=== PATIENT | male | born 1990 | race Caucasian/White ===

== ENCOUNTER 2020-09-27 19:51 | Emergency (ER) | payer OTHER ==
[~2020-09-27] VITALS: Ht 180.3 cm; Wt 95.6 kg
[2020-09-27 19:51] VITALS: BP 130/68
--- NOTE | 2020-09-27 20:33 | REPVR ---
PROCEDURE INFORMATION: Exam: XR Ribs with PA Chest Exam date and time: 09/27/2020 8:20 PM Age: 30 years old Clinical indication: Injury or trauma; Fall; Rib area, bilateral; Blunt trauma TECHNIQUE: Imaging protocol: XR bilateral ribs with PA chest. Views: 4 views COMPARISON: No relevant prior studies available. FINDINGS: Lungs: Lungs are free of infiltrates or masses. Pleural spaces: No pleural effusion. Heart/Mediastinum: Heart and mediastinal contours are normal. Bones/joints: No acute displaced rib fracture. No destructive or blastic rib lesion. No pneumothorax or other ancillary evidence of rib trauma. IMPRESSION: Negative bilateral rib series with single view chest. No acute fracture or acute intrathoracic process. Electronically signed by: Jose Driscoll On 09/27/2020 20:32:29 PM
[2020-09-27] MEDS ORDERED: KETOROLAC TROMETHAMINE 10 MG TAB PO ONE (21:10)
[2020-09-27] MEDS ORDERED: KETO10TAB PO (21:12)
== END 2020-09-27 21:21 | disposition home or self-care (01) ==
LOC: M ED 19:51
DX: S20.20XA Contusion of thorax, unspecified, initial encounter (principal); W01.198A Fall on same level from slipping, tripping and stumbling with subsequent striking against other object, initial encounter; Y92.9 Unspecified place or not applicable; Y93.9 Activity, unspecified; Y99.9 Unspecified external cause status

== ENCOUNTER 2020-10-05 13:46 | Emergency (ER) | payer OTHER ==
[~2020-10-05] VITALS: Ht 180.3 cm; Wt 96.1 kg
[~2020-10-05 13:46] MED LIST: KETO10TAB PO
[2020-10-05 15:13] LABS: BASO % 0.4 % (0.0-1.0); EOS # 0.1 10^3/uL (0.0-0.5); EOS % 1.1 % (0.0-3.0); HEMATOCRIT 41.8 % (42.0-52.0); LYMPH # 2.3 10^3/uL (1.5-5.0); LYMPH % 32.5 % (24.0-44.0); MEAN CORPUSCULAR HGB CONC 33.5 g/dl (32.0-36.5); MEAN CORPUSCULAR VOLUME 92.5 fl (80.0-96.0); MONO # 0.7 10^3/uL (0.0-0.8); MONO % 9.1 % (2.0-8.0); NEUTROPHILS % 56.5 % (36.0-66.0); PLATELET COUNT, AUTOMATED 344 10^3/uL (150-450); RED BLOOD COUNT 4.52 10^6/uL (4.30-6.10); WHITE BLOOD COUNT 7.2 10^3/uL (4.0-10.0)
[2020-10-05 15:33] LABS: ALBUMIN 3.8 GM/DL (3.2-5.2); BILIRUBIN,DIRECT 0.1 MG/DL (0.0-0.2); BILIRUBIN,TOTAL 0.5 MG/DL (0.2-1.0); TOTAL PROTEIN 7.8 GM/DL (6.4-8.2)
[2020-10-05] MEDS ORDERED: ISOVUE-370 76% 100ML VIAL As Ordered ONE (15:40)
[2020-10-05] MEDS ORDERED: NAPR220C14 PO (16:34)
[2020-10-05 16:45] VITALS: BP 128/71
== END 2020-10-05 16:47 | disposition home or self-care (01) ==
LOC: M ED 13:46
DX: S20.211A Contusion of right front wall of thorax, initial encounter (principal); W01.0XXA Fall on same level from slipping, tripping and stumbling without subsequent striking against object, initial encounter; Y92.9 Unspecified place or not applicable; Y93.A5 Activity, obstacle course; Y99.9 Unspecified external cause status
CPT/HCPCS: 36415; 74177; 80047; 80076; 85025; 99284; Q9967